=== PATIENT | female | born 1995 | race Hispanic/Latino ===

== ENCOUNTER 2020-04-17 19:06 | Emergency (ER) | payer BC ==
--- NOTE | 2020-04-17 20:50 | Emergency Department Report ---
- General Chief Complaint: Wound/Laceration Stated Complaint: LACERATION LEFT ARM Time Seen by Provider: 04/17/20 20:09 Source: patient, EMS Mode of arrival: Ambulatory Limitations: No Limitations - History of Present Illness Initial Comments: Patient is a 25-year-old female who presents emergency room with complaints of multiple superficial lacerations to the left forearm and to the left anterior thigh. She states that she did it with a razor blade from a men's shaving razor. She is currently at [place] on a 1013. She reports that she was doing it to self-harm but states that she was not doing it to kill herself. She denies any cuts anywhere else. She has a past medical history of bipolar, depression, anxiety. She denies any allergies to medications. She states her last tetanus immunization was a year ago. - Related Data Previous Rx's Medication Instructions Recorded Last Taken Type Neomycin/Bacitracin/Polymyxinb 1 applicatio TP BID #1 oint...g. 04/17/20 Unknown Rx [Triple Antibiotic Ointment] Allergies Allergy/AdvReac Type Severity Reaction Status Date / Time No Known Allergies Allergy Unverified 04/17/20 19:19 ED Review of Systems ROS: Stated complaint: LACERATION LEFT ARM Other details as noted in HPI Comment: All other systems reviewed and negative ED Past Medical Hx - Past Medical History Previous Medical History?: Yes Hx Psychiatric Treatment: Yes (BPD, depression, anxiety) - Surgical History Past Surgical History?: No - Social History Smoking Status: Current Every Day Smoker Substance Use Type: Alcohol - Medications Home Medications: Home Medications Medication Instructions Recorded Confirmed Last Taken Type Neomycin/Bacitracin/Polymyxinb 1 applicatio TP BID #1 oint...g. 04/17/20 Unknown Rx [Triple Antibiotic Ointment] ED Physical Exam - General Limitations: No Limitations General appearance: alert, in no apparent distress - Head Head exam: Present: atraumatic, normocephalic - Eye Eye exam: Present: normal appearance - ENT ENT exam: Present: mucous membranes moist - Neurological Exam Neurological exam: Present: alert, oriented X3 - Psychiatric Psychiatric exam: Present: normal affect, normal mood - Skin Skin exam: Present: warm, dry, other (multiple linear vertical superificial lacerations present to the left forearm, no active bleeding, one laceration slightly open goes through dermis and epidermis but does not involve the subcutaneous fat, does not need suture repair, very superficial lacerations present to the left anterior thigh which spells "kill me") ED Course Vital Signs 04/17/20 04/17/20 19:35 22:15 Temperature 98.5 F 98.1 F Pulse Rate 99 H 76 Respiratory 20 14 Rate Blood Pressure 131/80 Blood Pressure 116/61 [Left] O2 Sat by Pulse 97 97 Oximetry ED Medical Decision Making - Medical Decision Making Patient is a 25-year-old female who presents emergency room with complaints of multiple superficial lacerations to the left forearm and to the left anterior thigh. She states that she did it with a razor blade from a men's shaving razor. She is currently at [place] on a 1013. She reports that she was doing it to self-harm but states that she was not doing it to kill herself. She denies any cuts anywhere else. She has a past medical history of bipolar, depression, anxiety. She denies any allergies to medications. She states her last tetanus immunization was a year ago. VSS. on exam: multiple linear vertical superficial lacerations present to the left forearm, no active bleeding, one laceration slightly open goes through dermis and epidermis but does not involve the subcutaneous fat, does not need suture repair, very superficial lacerations present to the left anterior thigh which spells "kill me." Wound thoroughly s crubbed with Betadine, one slightly open wound closed with Dermabond with good skin approximation and Steri-Strips placed. Prescription for triple antibiotic ointment. Advised patient Please keep current Steri-Strips in place for 2 days then in 2 days remove them. After 2 days may wash with soap and water twice a day and immediately dry. No hot tub, no bathtub, no soaking in water, no pool. Please use ointment twice a day. Follow-up with a primary care doctor for reexamination. Return to emergency room for any new or worsening symptoms or any signs of infection. pt has a sitter with her from [facility], she was discharge back to [facility] facility Critical care attestation.: If time is entered above; I have spent that time in minutes in the direct care of this critically ill patient, excluding procedure time. ED Disposition Clinical Impression: Self-harm Lacerations of multiple sites of left arm Qualifiers: Encounter type: initial encounter Qualified Code(s): S41.112A - Laceration without foreign body of left upper arm, initial encounter Lacerations of multiple sites of left leg Qualifiers: Encounter type: initial encounter Qualified Code(s): S81.812A - Laceration without foreign body, left lower leg, initial encounter Disposition: [id number]/[id number] PSY HOSP/PSY UNIT Is pt being admited?: No Does the pt Need Aspirin: No Condition: Stable Instructions: Laceration (ED), Skin Adhesive Care (ED) Additional Instructions: Please keep current Steri-Strips in place for 2 days then in 2 days remove them. After 2 days may wash with soap and water twice a day and immediately dry. No hot tub, no bathtub, no soaking in water, no pool. Please use ointment twice a day. Follow-up with a primary care doctor for reexamination. Return to emergency room for any new or worsening symptoms or any signs of infection. Prescriptions: Neomycin/Bacitracin/Polymyxinb [Triple Antibiotic Ointment] 1 applicatio TP BID #1 oint...g. Referrals: PRIMARY CARE, [Primary Care Provider] - 3-5 Days Time of Disposition: 21:01 Print Language: LAO
[2020-04-17 23:01] VITALS: BP 116/61
== END 2020-04-17 23:01 ==
LOC: ED 19:06
DX: S41.112A Laceration without foreign body of left upper arm, initial encounter (principal); S81.812A Laceration without foreign body, left lower leg, initial encounter; F41.9 Anxiety disorder, unspecified; F17.200 Nicotine dependence, unspecified, uncomplicated; Z79.899 Other long term (current) drug therapy; Y28.8XXA Contact with other sharp object, undetermined intent, initial encounter; Y93.89 Activity, other specified; Y92.89 Other specified places as the place of occurrence of the external cause; Y99.8 Other external cause status